=== PATIENT | male | born 2005 | race Hispanic/Latino ===

== ENCOUNTER 2024-03-05 12:18 | Emergency (ER) | payer OTHER, SELFPAY | END 2024-03-05 12:46 | disposition home or self-care (01) | LOC: ERS 12:18 | DX: S66.912A Strain of unspecified muscle, fascia and tendon at wrist and hand level, left hand, initial encounter (principal); M67.834 Other specified disorders of tendon, left wrist; W61.39XA Other contact with chicken, initial encounter | CPT/HCPCS: 99282 ==